=== PATIENT | female | born 2000 | race Caucasian/White ===

== ENCOUNTER 2021-10-14 06:22 | Emergency (ER) | payer BC ==
[~2021-10-14] VITALS: Ht 154.9 cm; Wt 66.0 kg
[2021-10-14] MEDS ORDERED: ketorolac trometh. 30mg/ml inj. IV ONE (07:35)
[2021-10-14] MEDS ORDERED: normal saline 1000ML IV soln IVB ONE (07:35)
[2021-10-14] MEDS ORDERED: glycopyrrolate 0.2mg/ml inj IV ONE (07:35)
[2021-10-14 07:40] LABS: BASOPHILS # (AUTO) 0.1 X10'3 (0-0.2); BASOPHILS % (AUTO) 0.5 % (0-1); EOSINOPHILS # (AUTO) 0.1 X10'3 (0-0.9); EOSINOPHILS % (AUTO) 0.7 % (0-6); HEMATOCRIT 41.5 % (35.0-45.0); HEMOGLOBIN 14.1 g/dl (12.0-16.0); LYMPHOCYTES # (AUTO) 2.4 X10'3 (1.1-4.8); LYMPHOCYTES % (AUTO) 21.9 % (21-51); MEAN CORPUSCULAR HEMOGLOBIN 30.4 PG (27.0-31.0); MEAN CORPUSCULAR VOLUME 89.3 FL (78-98); MONOCYTES # (AUTO) 0.6 X10'3 (0-0.9); MONOCYTES % (AUTO) 5.8 % (2-12); NEUTROPHILS % (AUTO) 71.1 % (42-75); PLATELET COUNT 332 X10'3 (140-440); RED BLOOD COUNT 4.65 X10'6 (4.20-5.60); WHITE BLOOD COUNT 11.2 X10'3 (4.5-11.0)
[2021-10-14 07:56] LABS: ALANINE AMINOTRANSFERASE 22 U/L (12-78); ALBUMIN 3.7 G/DL (3.4-5.0); ALBUMIN/GLOBULIN RATIO 0.8 (1.1-1.5); ALKALINE PHOSPHATASE 85 IU/L (46-116); ANION GAP 17 (8-16); ASPARTATE AMINO TRANSFERASE 17 U/L (10-37); BILIRUBIN,TOTAL 0.2 MG/DL (0.1-1.0); BLOOD UREA NITROGEN 13 MG/DL (7-18); BUN/CREATININE RATIO 13.5 (6.6-38.0); CALCIUM 9.3 MG/DL (8.5-10.1); CHLORIDE 106 MMOL/L (99-107); CREATININE 0.96 MG/DL (0.40-0.90); GLUCOSE 103 MG/DL (70-104); SODIUM 143 MMOL/L (135-145); TOTAL CARBON DIOXIDE 20.5 MMOL/L (24-32); TOTAL PROTEIN 8.2 G/DL (6.4-8.2); eGFR 73 ML/MIN
[2021-10-14 07:57] LABS: LIPASE 138 U/L (73-393)
[2021-10-14 09:30] LABS: CLARITY,URINE CLEAR (Clear); GLUCOSE, URINE NEGATIVE (Neg); KETONES,URINE NEGATIVE (Neg); LEUKOCYTE ESTERASE ,URINE NEGATIVE (Neg); NITRITES, URINE NEGATIVE (Neg); OCCULT BLOOD,URINE NEGATIVE (Neg); PROTEIN,URINE NEGATIVE (Neg); UROBILINOGEN,URINE 0.2 E.U/dL (0.2-1.0)
[2021-10-14 09:32] LABS: COLOR,URINE STRAW (Yellow); UA COLLECTION TYPE CLN CATCH MIDSTREAM; URINE HCG NEGATIVE (NEG)
[2021-10-14 09:39] VITALS: BP 126/87
== END 2021-10-14 09:43 | disposition home or self-care (01) ==
LOC: ER 06:23
DX: K80.50 Calculus of bile duct without cholangitis or cholecystitis without obstruction (principal)
CPT/HCPCS: 36415; 76700; 80053; 81003; 81025; 83690; 85025; 96361; 96374; 96375; 99284; J1885; J3490; J7030

== ENCOUNTER 2021-10-30 10:54 | Day surgery (SDC) | payer BC ==
[2021-10-25 15:56] LABS: CLARITY,URINE CLEAR (Clear); COLOR,URINE YELLOW (Yellow); GLUCOSE, URINE NEGATIVE (Neg); KETONES,URINE NEGATIVE (Neg); LEUKOCYTE ESTERASE ,URINE NEGATIVE (Neg); NITRITES, URINE NEGATIVE (Neg); OCCULT BLOOD,URINE NEGATIVE (Neg); PROTEIN,URINE NEGATIVE (Neg); UROBILINOGEN,URINE 0.2 E.U/dL (0.2-1.0)
[2021-10-25 15:59] LABS: BASOPHILS # (AUTO) 0.1 X10'3 (0-0.2); BASOPHILS % (AUTO) 0.7 % (0-1); EOSINOPHILS # (AUTO) 0.1 X10'3 (0-0.9); EOSINOPHILS % (AUTO) 0.8 % (0-6); LYMPHOCYTES # (AUTO) 2.7 X10'3 (1.1-4.8); LYMPHOCYTES % (AUTO) 33.6 % (21-51); MEAN CORPUSCULAR HEMOGLOBIN 30.3 PG (27.0-31.0); MEAN CORPUSCULAR HGB CONC 33.9 g/dL (33.0-36.5); MEAN CORPUSCULAR VOLUME 89.4 FL (78-98); MEAN PLATELET VOLUME 8.6 FL (7.4-10.4); MONOCYTES # (AUTO) 0.7 X10'3 (0-0.9); MONOCYTES % (AUTO) 8.5 % (2-12); NEUTROPHILS # (AUTO) 4.6 X10'3 (1.8-7.7); NEUTROPHILS % (AUTO) 56.4 % (42-75); PRE OP HEMATOCRIT 39.8 % (35.0-45.0); PRE OP HEMOGLOBIN 13.5 g/dL (12.0-16.0); PRE OP PLATELET COUNT 335 X10'3 (140-440); RED BLOOD COUNT 4.45 X10'6 (4.20-5.60); RED CELL DISTRIBUTION WIDTH 12.8 % (11.5-14.5)
[2021-10-25 16:01] LABS: UA COLLECTION TYPE CLN CATCH MIDSTREAM
[2021-10-25 16:03] LABS: ALBUMIN 3.8 G/DL (3.4-5.0); ALBUMIN/GLOBULIN RATIO 0.9 (1.1-1.5); ALKALINE PHOSPHATASE 90 IU/L (46-116); BLOOD UREA NITROGEN 15 MG/DL (7-18); CALCIUM 8.6 MG/DL (8.5-10.1); CHLORIDE 105 MMOL/L (99-107); CREATININE 0.75 MG/DL (0.40-0.90); PRE OP ALT 25 U/L (30-65); PRE OP ANION GAP 11 (8-16); PRE OP AST 19 U/L (10-37); PRE OP BILIRUB, TOTAL 0.2 MG/DL (0.0-1.0); PRE OP GLUCOSE 76 MG/DL (70-104); PRE OP POTASSIUM 3.8 MMOL/L (3.4-5.1); PRE OP SODIUM 141 MMOL/L (135-145); TOTAL CARBON DIOXIDE 25.3 MMOL/L (24-32); eGFR > 90 ML/MIN
[2021-10-25 16:30] LABS: HCG SERUM QL NEGATIVE
[~2021-10-30] VITALS: Ht 154.9 cm; Wt 65.8 kg
[2021-10-30] VITALS (11 sets, daily range): BP systolic 107–127; BP diastolic 67–87
[~2021-10-30 10:54] MED LIST: HYDR-3686 PO; ceFOXitin 2GM-NS 100mL ADDvant 100 ML IV ONE; famotidine 20mg tablet PO ONE; ringers solution, lacted 1,000 ML IV SCH
[2021-10-30] MEDS ORDERED: BUPIVAcaine 0.5% inj/PF 30 ML ONE (13:53)
[2021-10-30] MEDS ORDERED: morphine 4 MG/ML inj SYRINge IV PRN (14:30)
[2021-10-30] MEDS ORDERED: fentaNYL/PF 50MCG/1 ML 2ML syringe ONE ×2 (14:30→14:48)
[2021-10-30] MEDS ORDERED: morphine 2 MG/ML inj. syringe IV PRN (14:30)
[2021-10-30] MEDS ORDERED: ringers solution, lacted 1,000 ML IV SCH (14:30)
[2021-10-30] MEDS ORDERED: ondansetron/PF 4mg/2ml inj IV PRN (14:30)
[2021-10-30] MEDS ORDERED: proCHLORperazine 10 MG/2 ml inj IV PRN (14:30)
[2021-10-30] MEDS ORDERED: meperidine/PF 25mg/ml syringe IV PRN ×3 (14:30)
[2021-10-30] MEDS ORDERED: midazolam 1 mg/ML 2ml injection ONE (14:31)
[2021-10-30] MEDS ORDERED: propofol inj 20 ML IV ONE (15:15)
[2021-10-30] MEDS ORDERED: ondansetron/PF 4mg/2ml inj ONE (15:15)
[2021-10-30] MEDS ORDERED: dexamethasone sod phosphate 4mg/ml inj. ONE (15:15)
[2021-10-30] MEDS ORDERED: LIDOcaine 2% (20mg/ml) 5ml vial ONE (15:15)
[2021-10-30] MEDS ORDERED: rocuronium 10mg/ml inj IV ONE (15:15)
[2021-10-30] MEDS ORDERED: acetaminophen 1,000mg/100ml IV 100 ML IV ONE (15:15)
[2021-10-30] MEDS ORDERED: sugammadex 200mg/2ml injection IV ONE (15:33)
[2021-10-30] MEDS ORDERED: BUPIVAcaine 0.5% inj/PF 30 ml vial IJ ONE (15:39)
--- NOTE | 2021-10-30 15:46 | NUR ---
Received from OR via [facility], accompanied by Anesthesiologist LILIANA and report given by Anesthesiolgist. PT PRESENTS DROWSY, RESPONDS TO TOUCH, VSS, NO COMPLAINTS OR SIGNS OF PAIN. LAP FUNMILAYO SITE DRY, CLEAN AND INTACT. AIRWAY INTACT, NAD. Addendum: 10/30/21 at 1555 by Osmany Reeder RN Amended: Links added.
--- NOTE | 2021-10-30 17:22 | NUR ---
PT DISCHARGED HOME, DC PAPERWORK EXPLAINED IN DETAIL, WRITTEN AND VERBAL. PT AND PARENTS AT BEDSIDE VERBALIZED UNDERSTANDING. PT'S PAIN AT TOLERABLE LEVEL, PT ABLE TO AMBULATE INDEPENDENT, NARROW, STEADY GAIT. IV REMOVED. PT AWARE NARCOTIC GIVEN AND NOT ABLE TO DRIVE OR OPERATE MACHINERY. AWARE OF FOLLOW UP PLAN OF CARE, RX AT [facility]. ASSISTED OUT TO POV BY WHEELCHAIR WITHOUT INCIDENT. Addendum: 10/30/21 at 1731 by Osmany Reeder RN Amended: Links added.
== END 2021-10-30 17:22 | disposition home or self-care (01) ==
LOC: PAS 10:54
PROVIDERS: ATTEND Surgery
DX: K80.10 Calculus of gallbladder with chronic cholecystitis without obstruction (principal); F41.9 Anxiety disorder, unspecified; Z98.890 Other specified postprocedural states; Z72.89 Other problems related to lifestyle; Z20.822 Contact with and (suspected) exposure to COVID-19; Z79.899 Other long term (current) drug therapy
CPT/HCPCS: 36415; 47562; 80053; 81003; 82948; 84703; 85025; J0131; J0694; J1100; J2175; J2250; J2405; J2704; J3010; J3490; J7030; J7120; S0020; U0003; U0005; Z7506; Z7512; A4215; A4618; A7000